=== PATIENT | male | born 1965 | race Hispanic/Latino ===

== ENCOUNTER 2017-11-19 22:31 | Emergency (ER) | payer SELFPAY ==
[2017-11-19] MEDS ORDERED: TDAP Vaccine 0.5 mL Syr IM ONE (22:47)
--- NOTE | 2017-11-19 22:48 | ED PDOC ---
Arrival/HPI - General Chief Complaint: Alcohol Ingestion Time Seen by Provider: 11/19/17 22:35 Historian: Patient - History of Present Illness Narrative History of Present Illness (Text): 11/19/17 22:47 52 year old male, with no significant past medical history, presents to the emergency department via EMS for public intoxication s/p fall. Patient was walking home and fell. Patient does not recall how he fell. Patient admits to drinking tonight. Patient denies any complaints. Patient denies any fever, chills, chest pain, shortness of breath, nausea, vomiting, diarrhea, urinary symptoms, back pain, neck pain, headache, dizziness, or any other complaints. Symptom Onset: Gradual Symptom Course: Unchanged Activities at Onset: Light Context: Street Past Medical History - Provider Review Nursing Documentation Reviewed: Yes - Psychiatric Hx Substance Use: No - Anesthesia Hx Anesthesia: No Hx Anesthesia Reactions: No Hx Malignant Hyperthermia: No Family/Social History - Physician Review Nursing Documentation Reviewed: Yes Family/Social History: No Known Family HX Smoking Status: Never Smoked Hx Alcohol Use: No Hx Substance Use: No Allergies/Home Meds Allergies/Adverse Reactions: Allergies No Known Allergies Allergy (Verified 11/19/17 22:38) Review of Systems - Physician Review All systems were reviewed & negative as marked: Yes - Review of Systems Constitutional: absent: Fevers, Other (Chills) Respiratory: absent: SOB Cardiovascular: absent: Chest Pain Gastrointestinal: absent: Diarrhea, Nausea, Vomiting Genitourinary Male: absent: Dysuria, Frequency, Hematuria Musculoskeletal: absent: Back Pain, Neck Pain Neurological: absent: Headache, Dizziness Physical Exam Vital Signs Reviewed: Yes Temperature: Afebrile Blood Pressure: Normal Pulse: Regular Respiratory Rate: Normal Appearance: Positive for: Well-Appearing, Non-Toxic, Comfortable Pain Distress: None Mental Status: Positive for: Alert and Oriented X 3 - Systems Exam Head: Present: Atraumatic, Normocephalic, Abrasion (on the face) Pupils: Present: PERRL Extroacular Muscles: Present: EOMI Conjunctiva: Present: Normal Mouth: Present: Moist Mucous Membranes Neck: Present: Normal Range of Motion Respiratory/Chest: Present: Clear to Auscultation, Good Air Exchange. No: Respiratory Distress, Accessory Muscle Use Cardiovascular: Present: Regular Rate and Rhythm, Normal S1, S2. No: Murmurs Abdomen: No: Tenderness, Distention, Peritoneal Signs Back: Present: Normal Inspection Upper Extremity: Present: Normal Inspection. No: Cyanosis, Edema Lower Extremity: Present: Normal Inspection. No: Edema Neurological: Present: GCS=15, CN II-XII Intact, Speech Normal Skin: Present: Warm, Dry, Normal Color. No: Rashes Psychiatric: Present: Alert, Oriented x 3, Normal Insight, Normal Concentration Medical Decision Making ED Course and Treatment: 11/19/17 22:48 Impression: 52 year old male presents for public intoxication s/p fall tonight. Plan: -- CT Head w/o Contrast -- CT Maxillofacial w/o Contrast -- Labs -- Boostrix Vaccine Inj, IV Fluids, Zofran Inj -- Blood Sugar -- Urinalysis -- Reassess and disposition Progress Notes: 11/20/17 00:02 EKG shows NSR at [address]/T wave change. Interpreted by me. 11/20/17 03:00 Patient reassessed. He states he feels better. Patient's abdomen is soft and nontender. EXAM: Head CT Electronically signed on Nov 20, 2017 2:47:39 AM EDT by: Inna Joseph M.D. IMPRESSION: Normal unenhanced CT scan of the brain. EXAM: CT Maxillofacial Electronically signed on Nov 20, 2017 3:15:20 AM EDT by: Inna Joseph M.D Impression: Displaced fracture of the left nasal bone. 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 Patient feels better and denies any complaints. Patient is stable for discharge - Lab Interpretations I have reviewed the lab results: Yes - RAD Interpretation Radiology Orders: 11/19/17 22:47 HEAD W/O CONTRAST [CT] Stat MAXILLOFACIAL W/O CONTRAST [CT] Stat - Scribe Statement The provider has reviewed the documentation as recorded by the Ginny Snow Provider Scribe Attestation: All medical record entries made by the Scribe were at my direction and personally dictated by me. I have reviewed the chart and agree that the record accurately reflects my personal performance of the history, physical exam, medical decision making, and the department course for this patient. I have also personally directed, reviewed, and agree with the discharge instructions and disposition. Disposition/Present on Arrival - Present on Arrival Any Indicators Present on Arrival: No History of DVT/PE: No History of Uncontrolled Diabetes: No Urinary Catheter: No History of Decub. Ulcer: No History Surgical Site Infection Following: None - Disposition Have Diagnosis and Disposition been Completed?: Yes Diagnosis: Fall, Nasal bone fracture, Abrasion, Head injury, ETOH abuse Disposition: HOME/ ROUTINE Disposition Time: 03:50 Condition: STABLE Discharge Instructions (ExitCare): Nose Fracture, Preventing Falls, Minor Head Injury (DC), Alcohol Abuse and Alcoholism (DC) Additional Instructions: follow up with ENT and you doctor/clinic. you may need further testing as an outpatient. return to er with wrosening symptoms or concerns. you need to follow up with ENT in the next week for further management. Referrals: Migue López DO [[facility]] - Follow up with primary Forms: [employer] (Algerian)
[2017-11-19 23:01] VITALS: RESP 18; TEMP 98.7
[2017-11-19] MEDS ORDERED: Sodium Chloride 0.9% 1,000 ML IV STA (23:05)
[2017-11-19 23:51] LABS: BASO # 0.02 K/mm3 (0.0-2.0); BASO % 0.2 % (0.0-3.0); EOS # 0.1 (0.0-0.7); GRAN # 4.07 (1.4-6.5); GRAN % 50.6 % (50.0-68.0); HEMOGLOBIN 14.6 g/dL (14.0-18.0); LYMPH # 3.5 (1.2-3.4); MEAN CORPUSCULAR HEMOGLOBIN 29.6 pg (25.0-35.0); MEAN CORPUSCULAR HGB CONC 34.8 g/dl (31.0-37.0); MEAN PLATELET VOLUME 8.9 fl (7.0-11.0); MONO # 0.4 (0.1-0.6); MONO % 5.2 % (1.0-6.0); RBC 4.93 10^6/uL (3.5-6.1); RED CELL DISTRIBUTION WIDTH 13.8 % (11.5-14.5); WHITE BLOOD COUNT 8.1 10^3/ul (4.5-11.0)
[2017-11-20 00:07] LABS: ALB/GLOB RATIO 1.4 (1.1-1.8); ALBUMIN 4.4 g/dL (3.0-4.8); ALT/SGPT 39 U/L (7-56); AST/SGOT 31 U/L (17-59); BLOOD UREA NITROGEN 12 mg/dL (7-21); CALCIUM 9.1 mg/dL (8.4-10.5); GFR NON-AFRICAN AMERICAN > 60
[2017-11-20 00:10] LABS: ACETAMINOPHEN < 10.0 ug/ml (10.0-20.0); SALICYLATE < 1 mg/dL (2.0-20.0)
[2017-11-20 00:18] LABS: TROPONIN I < 0.01 ng/mL
[2017-11-20 03:54] VITALS: O2SAT 100
[2017-11-20 03:55] VITALS: BP 115/79; PULSE 85
--- NOTE | 2017-11-20 09:29 | CT ---
Date of service: 11/20/2017 PROCEDURE: CT HEAD WITHOUT CONTRAST. HISTORY: trauma COMPARISON: None available. TECHNIQUE: Axial computed tomography images were obtained through the head/brain without intravenous contrast. Radiation dose: Total exam DLP = 942.90 mGy-cm. This CT exam was performed using one or more of the following dose reduction techniques: Automated exposure control, adjustment of the mA and/or kV according to patient size, and/or use of iterative reconstruction technique. FINDINGS: HEMORRHAGE: No intracranial hemorrhage. BRAIN: No mass effect or edema. No atrophy or chronic microvascular ischemic changes. VENTRICLES: Unremarkable. No hydrocephalus. CALVARIUM: Unremarkable. PARANASAL SINUSES: Unremarkable as visualized. No significant inflammatory changes. MASTOID AIR CELLS: Unremarkable as visualized. No inflammatory changes. OTHER FINDINGS: None. IMPRESSION: Normal CT of the Head. No intracranial mass, hemorrhage or evidence of acute infarct. The preliminary findings for this examination were reported by [facility] at 2:47 a.m. on 11/20/2017. There is concurrence of this report with the preliminary findings.
--- NOTE | 2017-11-20 09:55 | CT ---
Date of service: 11/20/2017 PROCEDURE: CT MAXILLOFACIAL BONES WITHOUT CONTRAST HISTORY: trauma COMPARISON: None available. TECHNIQUE: Contiguous axial CT images of the maxillofacial bones were obtained. Coronal and sagittal reformats were generated. Radiation dose: Total exam DLP = 807.42 mGy-cm. This CT exam was performed using one or more of the following dose reduction techniques: Automated exposure control, adjustment of the mA and/or kV according to patient size, and/or use of iterative reconstruction technique. FINDINGS: NASAL BONES: Minimally displaced left nasal tip fracture. Nasal septum intact. ORBITS: No fracture. Lamina papyracea and orbital floor are intact bilaterally. No intraorbital hemorrhage. Globes are rounded and symmetric. PARANASAL SINUSES/ MASTOIDS: Minimal chronic ethmoid and sphenoid sinusitis. MAXILLA: Unremarkable. MANDIBLE/ TEMPOROMANDIBULAR JOINTS: Visualized portions of the mandible are unremarkable. Please note that the temporomandibular joints were not included in this examination. SKULL BASE: Unremarkable. TEMPORAL BONES: Middle ears and mastoid grossly unremarkable. OTHER FINDINGS: None. IMPRESSION: Minimally displaced left nasal tip fracture. No other facial fracture. Minimal chronic ethmoid and sphenoid sinusitis. The preliminary findings for this examination were reported by [facility] at 3:15 a.m. on 11/20/2017. There is concurrence of this report with the preliminary findings.
--- NOTE | 2017-11-20 11:38 | CARD ---
APPROVED REPORT Date of service: 11/19/2017 EKG Measurement Heart [id number] NC [id number] [id number] <Conclusion> Normal sinus rhythm Normal ECG
== END 2017-11-20 03:49 | disposition home or self-care (01) ==
LOC: ED 22:31
DX: S02.2XXA Fracture of nasal bones, initial encounter for closed fracture (principal); W19.XXXA Unspecified fall, initial encounter; Y92.9 Unspecified place or not applicable; F10.10 Alcohol abuse, uncomplicated; Y90.7 Blood alcohol level of 200-239 mg/100 ml; Z23 Encounter for immunization
CPT/HCPCS: 70450; 70486; 80053; 82550; 83615; 83735; 84484; 85025; 90471; 90715; 93005; 96374; 96376; 99283; G0480; J2405; J7030